=== PATIENT | male | born 1965 | race Caucasian/White ===

== ENCOUNTER 2021-09-19 14:54 | Emergency (ER) | payer BC, SELFPAY ==
[~2021-09-19] VITALS: Ht 180.3 cm; Wt 83.9 kg
--- NOTE | 2021-09-19 16:49 | NUR ---
ER Dr. oconnor at bedside examining patient.
[2021-09-19 17:23] LABS: EOSINOPHILS # (AUTO) 0.1 K/uL (0.0-0.4); EOSINOPHILS % (AUTO) 0.8 % (0.0-4.0); MEAN CORPUSCULAR VOLUME 92 fL (79.0-98.0); MONOCYTES # (AUTO) 0.8 K/uL (0.0-1.0); NEUTROPHILS # (AUTO) 7.7 K/uL (1.8-7.7); WHITE BLOOD COUNT (AUTO) 9.4 K/uL (4.8-10.8)
[2021-09-19 17:26] LABS: ANION GAP 10 (5-15); CALCIUM 7.9 mg/dL (8.4-11.0); CHLORIDE 100 mmol/L (98-107); CREATININE 0.75 mg/dL (0.55-1.30); GLUCOSE 94 mg/dL (70-99); POTASSIUM 3.3 mmol/L (3.5-5.1); SODIUM SERUM 134 mmol/L (136-145); UREA NITROGEN, BLOOD 16 mg/dL (8-21)
[2021-09-19 17:32] LABS: ALANINE AMINOTRANSFERASE 56 U/L (12-78); ALBUMIN 3.5 g/dL (3.4-4.8); ASPARTATE AMINOTRANSFERASE 66 U/L (10-37); TOTAL BILIRUBIN 0.6 mg/dL (0.0-1.0)
[2021-09-19 17:42] LABS: ACETAMINOPHEN < 1 ug/mL (1-30); ALCOHOL, BLOOD < 3 mg/dL (<10); GFR AFRICAN AMERICAN 138 mL/min (>90)
[2021-09-19 17:57] LABS: BASOPHILS % (AUTO) 0.1 % (0.0-2.0); LYMPHOCYTES # (AUTO) 0.8 K/uL (1.0-5.5); LYMPHOCYTES % (AUTO) 8.8 % (20.5-51.5); MEAN CORPUSCULAR HEMOGLOBIN 31 pg (27-31); MEAN CORPUSCULAR HGB CONC 33 % (32-36); NEUTROPHILS % (AUTO) 81.3 % (40.0-70.0); PLATELET COUNT (AUTO) 280 K/uL (130-430); RED BLOOD CELL COUNT(AUTO) 3.59 MIL/uL (4.2-6.2); RED CELL DISTRIBUTION WIDTH 13.9 % (9.0-15.0)
[2021-09-19 18:56] VITALS: BP_SYST 138
--- NOTE | 2021-09-19 19:10 | NUR ---
Patient placed on suicide precautions. Patient placed in room within close proximity to nurses' station for closer observation and monitoring. All clothing removed, placed in hospital gown. Metal detector wand used to further screen patient of any potential hazardous belongings. All belongings inventoried, placed in bags and removed from room. Cabinets locked.
--- NOTE | 2021-09-19 19:12 | NUR ---
patient brought in by BLS accompanied with [facility] placed on 5150. Patient [place]. Patient was stopped by [employer] and stated "I want to kill myself." Patient has been calm and cooperative in ED. Patient reports SI. Denies any complaints at this time . Denies any pain.
[2021-09-19] MEDS ORDERED: POTASSIUM CHLORIDE 20 MEQ TAB.PRT.SR PO ONE (19:30)
--- NOTE | 2021-09-19 20:09 | NUR ---
Patient is medically cleared at this time.
--- NOTE | 2021-09-19 20:42 | NUR ---
given meal tray. Patient is sitting up in bed pleasant. no acute distress noted
--- NOTE | 2021-09-19 22:01 | NUR ---
Pt's packet faxed to the following [facility] facilities for evaluation and placement: [facility]- [facility]- [facility]- [facility]- [facility] Awaiting reply regarding placement.
--- NOTE | 2021-09-20 00:53 | NUR ---
PATIENT OUT OF BED TO RESTROOM
[2021-09-20 01:17] LABS: BILIRUBIN,URINE NEGATIVE (NEGATIVE); BLOOD, URINE NEGATIVE (NEGATIVE); CLARITY/URINE CLEAR (CLEAR); COLOR,URINE YELLOW (YELLOW); GLUCOSE,URINE NEGATIVE (NEGATIVE); KETONES,URINE NEGATIVE (NEGATIVE); LEUKOCYTE ESTERASE ,URINE NEGATIVE (NEGATIVE); NITRITE, URINE NEGATIVE (NEGATIVE); PH,URINE 7.5 (5.0-8.0); PROTEIN URINE NEGATIVE (NEGATIVE)
--- NOTE | 2021-09-20 01:26 | NUR ---
PATIENT GIVEN ICE WATER AND JUICE PER REQUEST. AOX 4. NO ACUTE DISTRESS
[2021-09-20 02:05] LABS: BARBITURATE, URINE NEGATIVE (NEG <=200); BENZODIAZEPINE, URINE POSITIVE (NEG <=150); CANNABINOID, URINE NEGATIVE (NEG <=50); COCAINE, URINE NEGATIVE (NEG <=150); METHAMPHETAMINES SCREEN,URINE NEGATIVE (NEG <=500); OPIATE, URINE NEGATIVE (NEG <=100); PHENCYCLIDINE SCREEN,URINE NEGATIVE (NEG <=25); UR TRICYCLIC ANTIDEPRESSANTS NEGATIVE (NEG <=300); URINE AMPHETAMINE NEGATIVE (NEG <=500); URINE METHADONE NEGATIVE (NEG <=200); URINE OXYCODONE SCREEN NEGATIVE (NEG <=100); URINE PROPOXYPHENE SCREEN NEGATIVE (NEG <=300)
--- NOTE | 2021-09-20 03:01 | NUR ---
PATIENT SLEEPING IN ROOM. CHEST RISE AND FALL NOTED. NO ACUTE DISTRESS NOTED AT THIS TIME
--- NOTE | 2021-09-20 03:08 | NUR ---
REPORT GIVEN TO DAVID SHORT FOR CONTINUATION OF CARE.
--- NOTE | 2021-09-20 03:45 | NUR ---
Patient to be transferred to [facility] . Is being transferred due to higher level of care. Receiving facility has accepting physician and available space. ER physician has signed transfer form. Patient or responsible green party has agreed to transfer and signed form. Patient belongings inventoried and will be sent with patient. Copy of nursing notes, lab reports, EKG, Physicians Orders and X-rays to be sent with patient. Report called to nurse at receiving facility. Receiving physician is DR. GONZALEZ. [facility] ambulance service has been called for transfer. ETA is 0900.
--- NOTE | 2021-09-20 05:56 | NUR ---
PT IS SLEEPING IN BED, VSS.
--- NOTE | 2021-09-20 07:13 | NUR ---
REPORT RECEIVED, PT AWAKE, IN NAD. RESP EVEN AND UNLABORED, ON RA @99%. PT CALM, COOPERATIVE, UNDERSTANDS PLAN OF CARE. DENIES ANY SI/HI AT THIS TIME.
--- NOTE | 2021-09-20 07:20 | NUR ---
BREAKFAST TRAY GIVEN, PT EATING AT THIS TIME.
--- NOTE | 2021-09-20 09:15 | NUR ---
[facility] HERE TO FUEL CONVERSION TECHNICIAN PT FOR TRANSFER. VSS. ALL PAPERWORK INCLUDING ORIGINAL 5250 FORM IN PACKET, LABS. PT STABLE FOR TRANSFER, CALM, COOPERATIVE.
[2021-09-20 09:16] VITALS: BP_SYST 133
== END 2021-09-20 09:15 ==
LOC: SED 14:54
DX: F32.9 Major depressive disorder, single episode, unspecified (principal); F41.9 Anxiety disorder, unspecified; R45.851 Suicidal ideations; Z20.822 Contact with and (suspected) exposure to COVID-19
CPT/HCPCS: 36415; 80053; 80307; 81003; 85025; 87426; 99285; G0480; G0481; G0482